=== PATIENT | female | born 1980 | race Caucasian/White ===

== ENCOUNTER 2023-04-17 09:19 | Emergency (ER) | payer OTHER, SELFPAY ==
[2023-04-17 09:22] VITALS: BP 129/77; PULSE 89; RESP 18; TEMP 36.5; O2SAT 99; BMI 24.2
--- NOTE | 2023-04-17 09:34 | XR_ITS ---
The [address] [address] Patient Name: SALUD CAMARILLO MRN: [facility]:[id number] date: 1980 Sex: F Assigned Patient Location: ER Current Patient Location: ED.MAIN Accession/Order Number: [id number] Exam Date: 04/17/2023 09:55 Report Date: 04/17/2023 10:36 At the request of: SUSAN KERR Procedure: XR cervical spine 2-3V EXAM: XR cervical spine 2-3V HISTORY: neck pain COMPARISON: None. TECHNIQUE: Lateral, AP, open-mouth radiographs of the cervical spine FINDINGS: Straightening of the normal cervical lordosis. Disc height loss at C5-C6 and C6/C7 with associated osteophytes. Normal mineralization. No fracture identified. The prevertebral soft tissues are unremarkable. Tongue ring in place XR/XR cervical spine 2-3V IMPRESSION: Degenerative changes of the cervical spine at C5-C6 and C6/C7. Electronically authenticated by: RUTHIE BECKWITH Date: 04/17/2023 10:36
--- NOTE | 2023-04-17 09:35 | ED_ITS ---
HPI - Neck Pain/Injury General Chief Complaint: Neck Pain/Injury Stated Complaint: NECK PAIN Time Seen by Provider: 04/17/23 09:29 Source: patient Mode of arrival: walk-in Limitations: no limitations History of Present Illness HPI Narrative: Patient woke with pain in the left posterolateral neck about 5 days ago. No known injury. No fever, chills, cough URI, SOB or chest pain. No known injury. No fall, MVC or other reason for the pain. She took OTC NSAID around 4am. She has not discussed with her PCP or been seen at any other facilities for this. No UE or LE symptoms such as numbness, tingling or weakness. Related Data Previous Rx's Medication Instructions Recorded methocarbamol 750 mg tablet 750 mg PO Q6H PRN pain #30 tabs 04/17/23 nabumetone 750 mg tablet 750 mg PO BID PRN pain #20 tabs 04/17/23 Allergies Allergy/AdvReac Type Severity Reaction Status Date / Time No Known Drug Allergies Allergy Ver[facility]17[facility]23 09:22 [facility] Social History Smoking status: Current every day smoker Exam Narrative Exam Narrative: Nurses notes and vital signs reviewed and patient is not hypoxic. afebrile General: Well-appearing and in no apparent distress. Skin: Warm, dry, no pallor noted. She has two scabbed areas on the right parietal scalp - none on the left. No rash to the neck. Head: Normocephalic, atraumatic. Neck: Left posterolateral cervical soft tissue tenderness. Supple, no posterior midline or anterior tenderness. One prominent posterior lymph node is noted. Eye: Pupils are equal, round and EOMI. No scleral icterus. Cardiovascular: Regular Rate and Rhythm without murmur, gallop or rub. Respiratory: No accessory muscle use or respiratory distress. Lungs are clear to auscultation, no wheezing, rales or rhonchi Back: No midline thoracic or lumbar vertebral tenderness. Musculoskeletal: normal ROM Neurological: A&O x4. No cranial nerve dysfunction observed. No truncal ataxia. Moves all extremities. Sensation intact. Psychiatric: Cooperative and interactive. Normal mood and affect. Constitutional Vital Signs, click to edit/add: Last Vital Signs Temp 97.7 F 04/17/23 09:22 Pulse 89 04/17/23 09:22 Resp 18 04/17/23 09:22 BP 129/77 04/17/23 09:22 Pulse Ox 99 04/17/23 09:22 O2 Del Method Room Air 04/17/23 09:22 Course Vital Signs Vital signs: Vital Signs Temperature 97.7 F 04/17/23 09:22 Pulse Rate 89 04/17/23 09:22 Respiratory Rate 18 04/17/23 09:22 Blood Pressure 129/77 04/17/23 09:22 Pulse Oximetry 99 04/17/23 09:22 Oxygen Delivery Method Room Air 04/17/23 09:22 Temperature 97.7 F 04/17/23 09:22 Pulse Rate 89 04/17/23 09:22 Respiratory Rate 18 04/17/23 09:22 Blood Pressure 129/77 04/17/23 09:22 Pulse Oximetry 99 04/17/23 09:22 Oxygen Delivery Method Room Air 04/17/23 09:22 MDM - Neck Pain/Injury MDM Narrative Medical decision making narrative: XR cervical spine = no acute abnormality to account for the pain. Patient received IM Toradol and IM Solumedrol. On recheck at 1030am she said that the pain was decreased but still present. We discussed xray result, diagnosis, plan for treatment. She was discharged home with prescriptions for relafen and robaxin, given work excuse and instructed to see her PCP for follow up. Imaging Data xr neck: My impression: No fracture or subluxation Radiologist's impression: Patient Name: SALUD CAMARILLO MRN: [id number] date: 1980 Sex: F Assigned Patient Location: ER Current Patient Location: ED.MAIN Accession/Order Number: [id number] Exam Date: 04/17/2023 09:55 Report Date: 04/17/2023 10:36 At the request of: SUSAN KERR Procedure: XR cervical spine 2-3V EXAM: XR cervical spine 2-3V HISTORY: neck pain COMPARISON: None. TECHNIQUE: Lateral, AP, open-mouth radiographs of the cervical spine FINDINGS: Straightening of the normal cervical lordosis. Disc height loss at C5-C6 and C6/C7 with associated osteophytes. Normal mineralization. No fracture identified. The prevertebral soft tissues are unremarkable. Tongue ring in place IMPRESSION: Degenerative changes of the cervical spine at C5-C6 and C6/C7. Electronically authenticated by: RUTHIE BECKWITH Date: 04/17/2023 10:36 Discharge Plan Discharge Chief Complaint: Neck Pain/Injury Clinical Impression: Acute neck pain Patient Disposition: Home, Self-Care Time of Disposition Decision: 10:36 Prescriptions / Home Meds: New nabumetone 750 mg tablet 750 mg PO BID PRN (Reason: pain) Qty: 20 0RF methocarbamol 750 mg tablet 750 mg PO Q6H PRN (Reason: pain) Qty: 30 0RF Instructions: Acute Neck Pain (ED) Stand Alone Forms: Portal Instructions Referrals: Physician,Non-Staff, MD [Primary Care Provider] - 1 week
[2023-04-17] MEDS: METHYLPREDNISOLONE SOD SUCC PF 125 MG/2 ML VIAL IM (09:41)
[2023-04-17] MEDS: KETOROLAC TROMETHAMINE 60 MG/2 ML VIAL IM (09:41)
== END 2023-04-17 10:45 | disposition home or self-care (01) ==
PROVIDERS: Emergency Provider Emergency Medicine
DX: M54.2 Cervicalgia (principal); F17.210 Nicotine dependence, cigarettes, uncomplicated
CPT/HCPCS: 72040; 96372; 99284; J2930

== ENCOUNTER 2023-06-28 14:01 | Outpatient (OUT) | payer OTHER, SELFPAY ==
--- NOTE | 2023-06-28 14:05 | XR_ITS ---
[address] [address] Patient Name: SALUD CAMARILLO MRN: [id number] date: 1980 Sex: F Assigned Patient Location: [facility] Current Patient Location: [facility] Accession/Order Number: [id number] Exam Date: 06/28/2023 14:10 Report Date: 06/28/2023 15:35 At the request of: CRISTA MENDEZ Procedure: XR elbow RT min 3V PROCEDURE: XR elbow RT min 3V COMPARISON: None. HISTORY: right elbow injury, right elbow pain FINDINGS: BONES:No acute fracture or dislocation. Minimal degenerative changes SOFT TISSUES:Negative. No visible soft tissue swelling. EFFUSION:None visible. OTHER: Negative. XR/XR elbow RT min 3V IMPRESSION: No acute abnormality Electronically authenticated by: CARTER BERRY Date: 06/28/2023 15:35
--- OUTSIDE RECORDS SUMMARY | 2023-06-28 14:08 | XMS_ITS | CCD ---
Author Name Unknown Address [id number] [place] [address] Organization [facility] Care Team Providers Care Postal Service Window Clerk Name Role Phone KIEL BHATIA Unavailable Unavailable SANDRA FINCH Unavailable Unavailable MD Luanne Khan Attending Provider [facility] Franklin Kim Primary Care Provider Erin, Luanne Unavailable NETO DIAZ Consulting Unavailable FRANKLIN PAIZ Primary Care Unavailable SAMIR, DR ZAIRE Charles Admitting Unavailabl e SAMIR, DR ZAIRE Charles Attending Unavailabl e FRANKLIN PAIZ Primary Care Unavailable SAMIR, DR ZAIRE Charles Attending Unavailabl e SAMIR, DR ZAIRE Charles Consulting Unavailabl e SAMIR, DR ZAIRE Charles Admitting Unavailabl e AGUBOSIMNELI Consulting Unavailable DREA HOWELL Consulting Unavailable [facility] [place] ROCHA Attending Unavailable [facility] [place] [place] Primary Care Unavailable [facility] [place] ROCHA Admitting Unavailable TAMPA, DR CARTER Brock Consulting Unavailable REQUEST, NONE LISTED Primary Care Unavaila ble LUANNE KHAN Attending Unavailable OLEXA, LUANNE Admitting Unavailable OLEXA, LUANNE Consulting Unavailable REQUEST, NONE LISTED Primary Care Unavaila ble ERIN, LUANNE Admitting Unavailable ERIN, LUANNE Attending Unavailable REQUEST, NONE LISTED Primary Care Unavaila ble DREA, DR KIEL Barroso Admitting Unavailmary SHEPARD, DR KIEL Barroso Attending Unavailabl tre SHEPARD, DR KIEL Barroso Consulting Unavailmary PEREZ, DR BENNY Richards Consulting Unavailable ANA, DR BENNY Richards Admitting Unavailable REQUEST, NONE LISTED Primary Care Unavaila arlen PEREZ, DR BENNY Richards Attending Unavailable JD CARRILLO Consulting Unavailable SUE, DR LINDSAY Richards Consulting Unavailable REQUEST, NONE LISTED Primary Care Unavaila ble MILAN, ALANA D Admitting Unavailable ALANA YATES Attending Unavailable ADRIAN BOYCE Consulting Unavailable Loretta Pacheco Unavailable Segun Fraag Referring Unavailable Segun Fraga Attending Unavailable Segun Fraga Admitting Unavailable Allergies Allergy Classification Reported Allergen(s) Allergy Type Date of Onset Reaction(s) Facility (2 sources) Adhesive agent Drug allergy (disorder) [facility] Repository (2 sources) buPROPion Drug Allergy [facility] Repository (2 sources) Chlorhexidine Drug Allergy [facility] Repository (2 sources) Fluorouracil Drug Allergy [facility] Repository (1 source) Adhesive bandage; Translations: [Adhesive Bandage] Propensity to adverse reactions (disorder) [facility] Repository (1 source) Adhesive Tape; Translations: [Tape] Propensity to adverse reactions (disorder) [facility] Repository (1 source) buPROPion; Translations: [Wellbutrin] Drug Allergy [facility] Repository (1 source) Chlorhexidine; Translations: [chlorhexidine topical] Drug Allergy [facility] Repository (1 source) Codeine; Translations: [codeine] Drug Allergy [facility] Repository Medications Current Medications Medication Drug Class(es) Dates Sig (Normalized) Sig (Original) acetaminophen 325 mg / HYDROcodone bitartrate 5 mg oral tablet (1 source) Opioid Agonist Start: 10-02-2021 take 1 tablet by mouth every four hours as needed for pain HYDROcodone-Acet aminophen 5-325 MG 1 tablet as needed for pain Orally up to every 4 hrs for 5 days Sep, Active cephalexin 500 mg oral capsule (1 source) Cephalosporin Antibacterial Start: 10-02-2021 take 1 capsule by mouth every eight hours Cephalexin 500 MG 1 capsule Orally every 8 hrs for 2 days Sep, Active predniSONE 20 mg oral tablet (1 source) Start: 09-30-2022 take 1 tablet by mouth every twelve hours predniSONE 20 MG 1 tablet Orally bid for 5 day(s) Sep, Active traMADol hydrochloride 50 mg oral tablet (1 source) Opioid Agonist Start: 10-09-2021 take 1 tablet by mouth every four to six hours as needed for pain traMADol HCl 50 MG 1 tablet as needed Orally q 4-6 hours prn pain for 7 days October, Active Completed/Discontinued Medications Medication Drug Class(es) Dates Sig (Normalized) Sig (Original) Hyoscyamine (2 sources) Hyoscyamine Sulfate ER Not-Taking Ondansetron (2 sources) Serotonin-3 Receptor Antagonist Zofran Not-Taking triamcinolone acetonide 40 mg/ml injectable suspension (1 source) Corticosteroid Start: 09-30-2022 Kenalog-40 Sep, 40 mg Problems Active Problems Problem Classification Problem Date Documented Da te Episodic/Chronic Abdominal pain (11 sources) Abdominal pain; Translations: [Unspecified abdominal pain] Onset: 06-09-2021 Episodic Allergic reactions (1 source) Unspecified contact dermatitis, unspecified cause Episodic Fracture of upper limb (5 sources) Other fracture of shaft of right ulna, subsequent encounter for closed fracture with routine healing; Translations: [Unspecified fracture of shaft of right ulna, initial encounter for closed fracture] Onset: 11-11-2021 Resolved: 11-11-2021 Episodic Gastritis and duodenitis (1 source) Unspecified chronic gastritis without bleeding; Translations: [UNS CHRONIC GASTRITIS W/O BLEEDING] Onset: 10-10-2021 Chronic Gastrointestinal hemorrhage (1 source) Melena; Translations: [MELENA] Onset: 10-10-2021 Episodic Other screening for suspected conditions (not mental disorders or infectious disease) (3 sources) Imaging of abdomen abnormal; Translations: [Abnormal findings on diagnostic imaging of other abdominal regions, including retroperitoneum] Episodic Pancreatic disorders (not diabetes) (3 sources) Pancreatitis; Translations: [Acute pancreatitis without necrosis or infection, unspecified] Episodic Substance-related disorders (1 source) Nicotine dependence, cigarettes, uncomplicated; Translations: [NICOTINE DEPEND CIGARETTES UNCOMP] Onset: 10-10-2021 Chronic Unclassified (4 sources) CONTACT W/AND (SUSP) EXPOS COVID-19; Translations: [CONTACT W/AND (SUSP) EXPOS COVID-19] Onset: 05-12-2021 Past or Other Problems Problem Classification Problem Date Documented Date Episodic/Chronic E Codes: Fall (1 source) Fall on same level from slipping, tripping and stumbling without subsequent striking against object, initial encounter; Translations: [FALL SAME LVL SLIP NO STRK OBJ INIT] Onset: 10-01-2021 Episodic Other injuries and conditions due to external causes (3 sources) Unspecified injury of right forearm, initial encounter; Translations: [UNS INJURY RT FOREARM INITIAL] Onset: 09-30-2021 Episodic Residual codes; unclassified (2 sources) Other specified postprocedural states Onset: 10-02-2021 Resolved: 11-11-2021 Episodic Unclassified (1 source) CONTACT W/AND (SUSP) EXPOS COVID-19; Translations: [CONTACT W/AND (SUSP) EXPOS COVID-19] Onset: 05-09-2021 Results Test Name Value Interpretation Reference Range Facility CBC w/Indiceson 11-16-2022 Erythrocyte distribution width (RBC) [Ratio] 13.8 % Normal 10.9-14.2 [facility] Comment on above: Performed By: #### 2 117930, 65518408, 443470126, 9826961, 4142685, 4791913, 6727760 #### [facility] [address] [place] [address] Hematocrit (Bld) [Volume fraction] 43.4 % Normal 34.0-46.0 [facility] Comment on above: Performed By: #### 2 221872, 06311231, 848453138, 2235631, 0285744, 6750897, 1849018 #### [facility] [address] [place] [address] Hemoglobin (Bld) [Mass/Vol] 14.6 g/dL Normal 12.0-16.0 [facility] Comment on above: Performed By: #### 2 016106, 15304053, 037337630, 3779519, 3890878, 2036209, 6987965 #### [facility] [address] [place] [address] MCH (RBC) [Entitic mass] 31.2 pg Normal 27.0-34.0 [facility] Comment on above: Performed By: #### 2 053967, 08033471, 985863445, 3007689, 7608064, 2214568, 9116576 #### [facility] [address] [place] [address] MCHC (RBC) [Mass/Vol] 33.7 g/dL Normal 31.4-36.0 [facility] Comment on above: Performed By: #### 2 939250, 33437847, 411503429, 0531435, 8028808, 2392099, 4865888 #### [facility] [address] [place] [address] MCV (RBC) [Entitic vol] 92.6 fL Normal 80.0-100.0 [facility] Comment on above: Performed By: #### 2 517072, 26626531, 669342037, 8441045, 5335201, 4670018, 7211440 #### [facility] [address] [place] [id number] Platelet mean volume (Bld) [Entitic vol] 9.0 fL Normal 6.4-10.8 [facility] Comment on above: Performed By: #### 2 126724, 84105632, 385531955, 8878092, 6784201, 7274843, 3207076 #### [facility] [address] [place] [address] Platelets (Bld) [#/Vol] 261.0 E9/L Normal 150.0-500.0 [facility] Comment on above: Performed By: #### 2 998105, 94137194, 554316665, 5003614, 9450293, 7428019, 9726706 #### [facility] [address] [place] [address] RBC (Bld) [#/Vol] 4.7 E12/L Normal 4.3-5.9 [facility] Comment on above: Performed By: #### 2 022687, 39846351, 925448663, 1743761, 2281222, 8241439, 6875845 #### [facility] [address] [place] [address] WBC corrected for nucl RBC Auto (Bld) [#/Vol] 11.4 E9/L High 4.0-11.0 [facility] Comment on above: Performed By: #### 2 803421, 39733273, 069917452, 7292420, 3069664, 3617111, 3321448 #### [facility] [address] [place] [address] CMPon 11-16-2022 Albumin [Mass/Vol] 4.2 g/dL Normal 3.3-5.0 [facility] Comment on above: Performed By: #### 2 789634, 87851797, 656897564, 2387352, 5351683, 9215254, 3130546 #### [facility] [address] [place] [address] Albumin/Globulin (S) [Mass conc ratio] 1.4 Normal 1.1-2.2 [facility] Comment on above: Performed By: #### 2 839570, 10739771, 724624295, 0840141, 3430461, 1555575, 7386463 #### [facility] [address] [place] [address] ALP [Catalytic activity/Vol] 38 Int._Unit/L Normal 21-98 [facility] Comment on above: Performed By: #### 2 433055, 47997844, 032070993, 7647105, 5794539, 2872941, 5788619 #### [facility] [address] [place] [address] ALT No additional P-5'-P [Catalytic activity/Vol] 11 Int._Unit/L Normal 6-46 [facility] Comment on above: Performed By: #### 2 928835, 49424132, 189455663, 2980946, 5907276, 8874454, 8627982 #### [facility] [address] [place] [address] Anion gap [Moles/Vol] 10 mmol/L Normal 6-16 [facility] Comment on above: Performed By: #### 2 053452, 07439937, 722241533, 3690605, 0314898, 0250317, 8574780 #### [facility] [address] [place] [address] AST [Catalytic activity/Vol] 12 Int._Unit/L Normal 5-43 [facility] Comment on above: Performed By: #### 2 120444, 45737631, 637049053, 2766895, 7523257, 3759950, 6945787 #### [facility] [address] [place] [address] Bilirubin [Mass/Vol] 0.5 mg/dL Normal 0.0-1.1 [facility] Comment on above: Performed By: #### 2 068338, 29332552, 864277102, 1409886, 5986509, 9277637, 2868265 #### [facility] [address] [place] [address] Calcium [Mass/Vol] 9.4 mg/dL Normal 8.9-11.1 [facility] Comment on above: Performed By: #### 2 121074, 61532545, 184648824, 0435575, 6821020, 5767403, 1011609 #### [facility] [address] [place] [address] Chloride [Moles/Vol] 106 mmol/L Normal 101-111 [facility] Comment on above: Performed By: #### 2 155483, 25639994, 901113794, 0650036, 8852842, 0018477, 4180318 #### [facility] [address] [place] [address] CO2 [Moles/Vol] 28 mmol/L Normal 21-31 [facility] Comment on above: Performed By: #### 2 855152, 92261336, 518875339, 8357314, 4936204, 7878959, 8222361 #### [facility] [address] [place] [address] Creatinine [Mass/Vol] 0.8 mg/dL Normal 0.5-1.3 [facility] Comment on above: Performed By: #### 2 117196, 69159219, 356230205, 7027896, 5636449, 2247022, 8441303 #### [facility] [address] [place] [address] Globulin (S) [Mass/Vol] 2.9 g/dL Normal 1.4-4.0 [facility] Comment on above: Performed By: #### 2 092997, 38579308, 269347464, 2581122, 5643360, 3869595, 2639692 #### [facility] [address] [place] [address] Glucose [Mass/Vol] 90 mg/dL Normal 55-199 [facility] Comment on above: Result Comment: If t his glucose result represents a fasting glucose, interpretation should refer to the following reference range: 55-99 mg/dL Performed By: #### 2 784891, 89254057, 555090364, 7889738, 4715515, 2535023, 0602104 #### [facility] [address] [place] [address] Potassium [Moles/Vol] 4.0 mmol/L Normal 3.5-5.3 [facility] Comment on above: Performed By: #### 2 717807, 18618354, 447575268, 7586815, 5008315, 6728320, 3080505 #### [facility] [address] [place] [address] Protein [Mass/Vol] 7.1 g/dL Normal 6.0-7.8 [facility] Comment on above: Performed By: #### 2 290895, 32221624, 439716349, 2915853, 1877129, 0087803, 5099007 #### [facility] [address] [place] [address] Sodium [Moles/Vol] 140 mmol/L Normal 135-145 [facility] Comment on above: Performed By: #### 2 679146, 22065938, 066126936, 7476200, 6375681, 6137960, 6871469 #### [facility] [address] [place] [address] Urea nitrogen [Mass/Vol] 10 mg/dL Normal 5-21 [facility] Comment on above: Performed By: #### 2 550527, 91657642, 081908356, 1738464, 5312168, 5784084, 4758684 #### [facility] [address] [place] [address] Urea nitrogen/Creatinin e [Mass ratio] 12 No Units Normal 10-20 [facility] Comment on above: Performed By: #### 2 747199, 76456047, 124269307, 7662907, 9962487, 1750302, 9688131 #### [facility] [address] [place] [address] Consent for Treatmenton 11-05 Consent for Treatment [id number] #1.00CD:127 Normal [facility] Lipid Panelon 11-16-2022 Cholesterol [Mass/Vol] 154 mg/dL Normal 120-200 [facility] Comment on above: Performed By: #### 2 715707, 84387132, 466541283, 2647454, 0693588, 0063050, 5779601 #### [facility] [address] [place] [address] Cholesterol in HDL [Mass/Vol] 40 mg/dL Invalid Interpretation Code [facility] Comment on above: Result Comment: HDL > or equal to 60 mg/dL: Low cardiovascular risk HDL < 40 mg/dL : High cardiovascular risk Performed By: #### 2 077441, 92406265, 897155526, 7539983, 3215988, 7817327, 6516917 #### [facility] [address] [place] [address] Cholesterol in LDL [Mass/Vol] 94 mg/dL Normal <=129 [facility] Comment on above: Performed By: #### 2 886458, 14392606, 026671427, 4946235, 2794212, 7426216, 1890168 #### [facility] [address] [place] [address] Cholesterol in VLDL [Mass/Vol] 11 mg/dL Normal 7-40 [facility] Comment on above: Performed By: #### 2 381967, 06326705, 983707246, 9809480, 9788529, 9347150, 6676331 #### [facility] [address] [place] [address] Triglyceride [Mass/Vol] 57 mg/dL Normal <=149 [facility] Comment on above: Performed By: #### 2 233407, 50869475, 832719930, 9592899, 5918900, 8451227, 0818792 #### [facility] [address] [place] [address] MA Mamm Diag w/CAD if perf a nd 3D Bilon 11-16-2022 MA Mamm Diag w/CAD if perf and 3D Mauricio Exam Date/Time: 11/16/2022 10:33 EDT Reason for Exam: GALACTORRHEA Report IMPRESSION: BIRADS 2 BENIGN FINDINGS, NORMAL INTERVAL FOLLOW-UP.12 MONTH RECALL. WITH THE HISTORY OF GALACTORRHEA, CLINICAL MANAGEMENT IS SUGGESTED. CLINICAL HISTORY: GALACTORRHEA. COMPARISON: 12/06/2020. COMMENT: Routine views and tomosynthesis views of both breasts were obtained. The breasts are heterogeneously dense, which may obscure small masses. No dominant breast mass nor neoplastic calcifications are noted. There has been no significant change when compared to the prior exam. The examination was reviewed with Computer Aided Detection. An ultrasound was obtained at all clock face positions and in the central/ retroareolar region of the right breast. No breast mass nor cyst nor suspicious lesion is noted in the right breast. There are small diameter retroareolar ducts, without evidence of internal debris or nodularity. An ultrasound was obtained at all clock face positions and in the central/ retroareolar region of the left breast. At 4:00, there is a cyst, with greatest diameter of 6 mm. No solid breast mass nor suspicious lesion is noted. There are small diameter retroareolar ducts, without evidence of internal debris or nodularity. Breast Density: Yes Mammography is very important to your health. The current [place] [employer] and National Comprehensive Cancer Network guidelines recommends annual mammography beginning at age 40. This facility utilizes a reminder system to ensure all patients receive reminder notifications at the appropriate time based on the recommendations of this exam. Board Certified Radiologists. Accredited by the ACR and FDA. Ordering Provider: Segun Fraga FINAL REPORT Dictated: 11/16/2022 2:53 pm Jd Vasquez M.D. Signed (Electronic Signature): 11/16/2022 2:53 pm Signed by: Jd Vasquez M.D. Transcribed by: LENNOX Technologist: [facility] Assessment: BI-RADS Category 2-Benign finding Recommendation: Normal interval follow-up Normal [facility] Physician Orderon 11-16-2022 Physician Order [id number] #1.00CD:127 Normal [facility] Prolactinon 11-16-2022 Prolactin [Mass/Vol] 15.10 ng/mL Normal 3.34-26.72 [facility] Comment on above: Performed By: #### 2 260746, 16746762, 384433882, 8391238, 7688581, 3991600, 7505886 #### [facility] [address] [place] [address] TSHon 11-16-2022 TSH Qn 1.73 m[IU]/L Normal 0.34-5.60 [facility] Comment on above: Performed By: #### 2 681173, 09076101, 399549368, 7752356, 0847182, 1241438, 2164769 #### [facility] [address] [place] [address] US Breast Unilateral Lt Comp leteon 11-16-2022 US Breast Unilateral Lt Complete Exam Date/Time: 11/16/2022 11:04 EDT Reason for Exam: Nipple discharge Report PLEASE REFER TO THE MAMMOGRAM REPORT. Ordering Provider: Segun Fraga FINAL REPORT Dictated: 11/16/2022 3:22 pm Jd Vasquez M.D. Signed (Electronic Signature): 11/16/2022 3:22 pm Signed by: Jd Vasquez M.D. Transcribed by: LENNOX Technologist: JAYRO Fischer [facility] US Breast Unilateral Rt Comp leteon 11-16-2022 US Breast Unilateral Rt Complete Exam Date/Time: 11/16/2022 11:03 EDT Reason for Exam: Nipple discharge Report PLEASE REFER TO THE MAMMOGRAM REPORT. Ordering Provider: Segun Fraga FINAL REPORT Dictated: 11/16/2022 3:23 pm Jd Vasquez M.D. Signed (Electronic Signature): 11/16/2022 3:23 pm Signed by: Jd Vasquez M.D. Transcribed by: LENNOX Technologist: JAYRO Fischer [facility] Vitamin D 25 Hydroxyon 11-16 25-hydroxyvitamin D3 [Mass/Vol] 27.5 ng/mL Low 30.0-100.0 [facility] Comment on above: Result Comment: Vit thurston D deficiency has been defined as a level of serum 25-OH vitamin D less than 20 ng/mL (1,2) by the [place] of Medicine and an Endocrine Society practice guideline. The Endocrine Society further defined vitamin D insufficiency as a level between 21 and 29 ng/mL (2). 1. IOM ([place] of Medicine). 2010. Dietary reference intakes for calcium and D. [place]: The National Academies Press. 2. Vero MF, Kiersten NC, Jade RUIZ, et al. Evaluation, treatment, and prevention of vitamin D deficiency: an Endocrine Society clinical practice guideline. JCEM. 2010; 96 (7):1911-30. Performed By: #### 2 613419, 43467118, 925697608, 9005906, 0930347, 1682606, 2479780 #### [facility] [address] [place] [address] eGFRon 11-16-2022 GFR/1.73 sq M.predicted among non-blacks MDRD (S/P/Bld) [Vol rate/Area] 95 mL/min/1.73 m2 Normal >=59 [facility] Comment on above: Order Comment: Order added by Discern Expert. Result Comment: Photo Checker And Assembler pascual kidney disease could be indicated at eGFR's of less than 60 mL/min/1.73m2. Kidney failure is indicated at less than 15 mL/min/1.73m2. Performed By: #### 2 265994, 18127069, 864293213, 0051939, 7730599, 8986645, 3508787 #### [facility] [address] [place] [id number] Physician Orderon 11-12-2022 Physician Order [id number] #1.00CD:127 Normal [facility] XR forearm RT 2V*on 10-10-19 XR forearm RT 2V* [facility] Main [place] [address] [place] [address] XRay Report Signed Patient: Vianney Camarillo MR#: [id number] 20 : 1980 Acct:[id number] Age/Sex: 41 / F ADM Date: 10/09/21 Loc: [facility] Room: Type: [facility] Attending Dr: Luanne Khan MD Ordering Provider: Luanne Khan MD Date of Service: 10/09/21 XR/XR forearm RT 2V*: Other specified postprocedural states Copies to: Luanne Khan MD RIGHT FOREARM - 2 views CLINICAL HISTORY: Follow-up right ulnar shaft fracture COMPARISON: 10/02/2021 (intraoperative) AP and lateral views of the right forearm were obtained. There is a volar plate along the mid to distal shaft of the ulna. A nondisplaced fracture is seen in the area in satisfactory alignment. There is no new fracture or dislocation. There is mild soft tissue swelling. XR/XR forearm RT 2V* IMPRESSION: STABLE ULNAR SHAFT FRACTURE. Impression dictated by: Krystal Rubalcava M.D.10/09/2021 3:57 PM Dictation Location: [place] [address] Transcribed By: [facility] 10/09/21 1709 Dictated By: Krystal Rubalcava MD 10/09/21 1135 Signed By: 10/09/21 1556 [facility] Covid-19 PCR (CVDTBH)on SARS-CoV-2 (COVID-19) RNA RAQUEL+probe Ql (Unsp spec) Not detected Normal NOT DETECTED [facility] Comment on above: Result Comment: When diagnostic testing is negative, the possibility of a false negative should be considered in the context of a patient's recent exposures and the presence of clinical signs and symptoms consistent with SARS-CoV-2. This test is not yet approved or cleared by the [place] FDA. When there are no FDA-approved or cleared tests available, and other criteria are met, FDA can make tests available under an emergency access mechanism called an Emergency Use Authorization (EUA). The EUA for this test is supported by the Information Systems Administrator of Health and Human Service's declaration that circumstances exist to justify the emergency use of in vitro diagnostics for the detection and/or diagnosis of the virus that causes COVID-19. This EUA will remain in effect for the duration of the COVID-19 declaration justifying emergency of IVDs, unless it is terminated or revoked by the FDA (after which the test may no longer be used). Performed By: #### C VDTBH #### [facility] [address] [place] [address] [address] Cande Leach H PYLORI TISSUEon 10-08-2021 H PYL TISSUE, UREASE Negative Normal NEGATIVE [facility] Comment on above: Performed By: #### H PYLT #### [facility] [address] [address] [address] Cande Leach PREG HCG QUALon 10-08-2021 , QUAL Negative Normal NEGATIVE [facility] Comment on above: Performed By: #### C MP, BRUNO, LIPA #### [facility] [address] [place], [place] [address] Dr. Cande Leach HCG,Urineon 10-02-2021 Beta HCG ( test) Ql (U) Negative Normal [facility] Comment on above: Result Comment: PERF ORMED BY: [place] [id number] PATHOLOGIST MARKETING SYSTEMS ANALYST CHARLES STEINER M.D. Performed By: #### U HCG #### [place] [address] [place] XR forearm RT 2V*on 10-03-19 XR forearm RT 2V* [facility] Main [place] [address] [place] [address] XRay Report Signed Patient: Vianney Camarillo MR#: [id number] [birth year] : 1980 Acct:[id number] Age/Sex: 41 / F ADM Date: 10/02/21 Loc: MD Room: Type: [facility] Attending Dr: Luanne Khan MD Ordering Provider: Luanne Khan MD Date of Service: 10/02/21 XR/XR forearm RT 2V*: . Copies to: Luanne Khan MD XR forearm RT 2V* 10/02/2021 3:18 PM SIGNS AND SYMPTOMS: Plate and screw fixation of a fracture of the right ulna PROTOCOL: Intraoperative views of the right forearm COMPARISON: None FINDINGS: Intraoperative views of the right forearm demonstrate plate and screw fixation of a previous ulnar fracture. Number of images: 4 Fluoroscopic time: 1 minute 10 seconds XR/XR forearm RT 2V* IMPRESSION: Intraoperative views of the right forearm demonstrate plate and screw fixation of a previous ulnar fracture. Impression dictated by: Benny Parks M.D.10/02/2021 4:38 PM Dictation Location: [place] [address] Transcribed By: [facility] 10/02/21 1638 Dictated By: Benny Parks II, MD 10/02/21 1637 Signed By: 10/02/21 1638 Normal [facility] SARS-CoV-2 (COVID-19) RNA RAQUEL+probe Ql (Unsp spec) Negative Normal Negative [facility] Comment on above: Order Comment: Healt hcare Worker?: N Result Comment: Testing for SARS-CoV-2 by RT-PCR This test was developed and its performance characteristics determined by [employer] ([employer]) and validated at the [facility]. This test has not been FDA cleared or approved. This test has been authorized by FDA under an Emergency Use Authorization (EUA). This test has been validated in accordance with the FDA's Guidance Document (Policy for Diagnostics Testing in Laboratories Certified to Perform High Complexity Testing under CLIA prior to Emergency Use Authorization for Coronavirus Disease-2019 during the Public Health Emergency) issued on September 07, 2019. This test is only authorized for the duration of time the declaration that circumstances exist justifying the authorization of the emergency use of in vitro diagnostic tests for detection of SARS-CoV-2 virus and/or diagnosis of COVID-19 infection under section 564(b)(1) of the Act, 21 U.S.C. 360bbb-3(b)(1), unless the authorization is terminated or revoked sooner. PERFORMED BY: [place] [id number] PATHOLOGIST MARKETING SYSTEMS ANALYST CHARLES STEINER M.D. Performed By: #### C OVID 19 [facility] #### [address] COVID-19 Positive/NegativeOr dered By: Luanne Khan on 10-01-2021 SARS-CoV-2 (COVID-19) N gene RAQUEL+probe Ql (Resp) Negative Negative [facility] Comment on above: Testing for SARS-CoV -2 by RT-PCRThis test was developed and its performance characteristics determined by [employer] ([employer]) and validated at the [facility]. This test has not been FDA cleared or approved. This test has been authorized by FDA under an Emergency Use Authorization (EUA). This test has been validated in accordance with the FDA's Guidance Document (Policy for Diagnostics Testing in Laboratories Certified to Perform High Complexity Testing under CLIA prior to Emergency Use Authorization for Coronavirus Disease-2019 during the Public Health Emergency) issued on September 07, 2019. This test is only authorized for the duration of time the declaration that circumstances exist justifying the authorization of the emergency use of in vitro diagnostic tests for detection of SARS-CoV-2 virus and/or diagnosis of COVID-19 infection under section 564(b)(1) of the Act, 21 U.S.C. 360bbb-3(b)(1), unless the authorization is terminated or revoked sooner. XR FOREARM RT 2Von 2 XR FOREARM RT 2V EXAM: XR FOREARM RT 2V HISTORY: Acute right arm pain following fall. COMPARISON: Right elbow, 09/13/2019. TECHNIQUE: AP and crosstable lateral views of the right forearm. FINDINGS: There is an acute oblique fracture of the ulnar shaft near the junction of the middle and distal thirds, with 3 mm of dorsal displacement of distal fragment on the lateral view. No additional acute osseous injury is seen. Alignment of the elbow wrist appears anatomic. An old healed fifth metacarpal fracture is noted with mild developmental shortening of the fourth and fifth metacarpals. IMPRESSION: 1. Acute mildly displaced ulnar shaft fracture as above. Electronically authenticated by: JD CARRILLO Date: 2021-09-29 23:57 Normal [facility] AMYLASEon 06-09-2021 Amylase [Catalytic activity/Vol] 47 U/L Normal 31-110 [facility] Comment on above: Performed By: #### C SANDRA BRUNO LIPA #### [facility] [address] [place] [address] Dr. Cande Leach CBC AUTO DIFFon 06-09-2021 BASO # 0.1 103/ul Normal 0.0-0.1 [facility] Comment on above: Performed By: #### C MP BRUNO, LIPA #### [facility] [address] [place] [address] [address] Cande Leach Basophils/100 WBC (Bld) 0.6 % Normal 0.2-2.0 [facility] Comment on above: Performed By: #### C SANDAR BRUNO, LIPA #### [facility] [address] [place] [address] [address] Cande Leach EO # 0.2 103/ul Normal 0.0-0.7 [facility] Comment on above: Performed By: #### C MP BRUNO, LIPA #### [facility] [address] [place] [address] [address] Cande Leach Eosinophils/100 WBC (Bld) 1.9 % Normal 0.9-7.0 [facility] Comment on above: Performed By: #### C MP BRUNO, LIPA #### [facility] [address] [place] [address] Dr. Cande Leach Erythrocyte distribution width (RBC) [Ratio] 13.7 % Normal 11.0-15.0 [facility] Comment on above: Performed By: #### C BRUNO FLORES, LIPA #### [facility] [address] [place] [address] Dr. Cande Leach Hematocrit (Bld) [Volume fraction] 43.1 % Normal 36.0-48.0 [facility] Comment on above: Performed By: #### C MP BRUNO, LIPA #### [facility] [address] [place] [address] Dr. Cande Leach Hemoglobin (Bld) [Mass/Vol] 14.3 g/dL Normal 12.0-16.0 [facility] Comment on above: Performed By: #### C BRUNO FLORES, LIPA #### [facility] [address] [place] [address] Dr. Cande Leach IG # 0.02 10e3/ul Normal 0.00-0.03 [facility] Comment on above: Performed By: #### C BRUNO FLORES, LIPA #### [facility] [address] [place] [address] Dr. Cande Leach IG % 0.3 % Normal 0.0-0.5 [facility] Comment on above: Performed By: #### C BRUNO FLORES, LIPA #### [facility] [address] [place] [address] Dr. Cande Leach LYMPH # 2.1 103/ul Normal 1.2-3.8 [facility] Comment on above: Performed By: #### C BRUNO FLORES, LIPA #### [facility] [address] [place] [address] Dr. Cande Leach Lymphocytes/100 WBC (Bld) 26.6 % Normal 20.5-60.0 [facility] Comment on above: Performed By: #### C BRUNO FLORES, LIPA #### [facility] [address] [place] [address] Dr. Cande Leach MANUAL DIFF REQ NO Normal [facility] Comment on above: Performed By: #### C SANDRA BRUNO, LIPA #### [facility] [address] [place] [address] Dr. Cande Leach MCH (RBC) [Entitic mass] 30.6 pg Normal 26.7-34.0 [facility] Comment on above: Performed By: #### C BRUNO FLORES, LIPA #### [facility] [address] [place] [address] Dr. Cande Leach MCHC (RBC) [Mass/Vol] 33.2 g/dL Normal 29.9-35.2 [facility] Comment on above: Performed By: #### C SANDRA BRUNO, LIPA #### [facility] [address] [place] [address] Dr. Cande Leach MCV (RBC) [Entitic vol] 92.3 fL Normal 81.0-99.0 [facility] Comment on above: Performed By: #### C SANDRA BRUNO, LIPA #### [facility] [address] [place] [address] Dr. Cande Leach MONO # 0.5 103/ul Normal 0.3-0.8 [facility] Comment on above: Performed By: #### C SANDRA BRUNO, LIPA #### [facility] [address] [place] [address] Dr. Cande Leach Monocytes/100 WBC (Bld) 6.6 % Normal 1.7-12.0 [facility] Comment on above: Performed By: #### C SANDRA BRUNO, LIPA #### [facility] [address] [place] [address] Dr. Cande Leach NEUT # 5.1 103/ul Normal 1.4-6.5 [facility] Comment on above: Performed By: #### C MP BRUNO, LIPA #### [facility] [address] [place] [address] Dr. Cande Leach Neutrophils/100 WBC (Bld) 64.0 % Normal 43.0-75.0 [facility] Comment on above: Performed By: #### C MP BRUNO, LIPA #### [facility] [address] [place] [address] Dr. Cande Leach Platelet mean volume (Bld) [Entitic vol] 9.6 fL Normal 9.5-13.5 [facility] Comment on above: Performed By: #### C MP, BRUNO, LIPA #### [facility] [address] [place] [address] Dr. Cande Leach PLT 273 103/ul Normal 150-450 [facility] Comment on above: Performed By: #### C MP, BRUNO, LIPA #### [facility] [address] [place] [address] Dr. Cande Leach RBC 4.67 106/ul Normal 4.20-5.40 [facility] Comment on above: Performed By: #### C MP, BRUNO, LIPA #### [facility] [address] [place] [address] Dr. Cande Leach WBC 7.9 103/ul Normal 4.0-11.0 [facility] Comment on above: Performed By: #### C MP, BRUNO, LIPA #### [facility] [address] [place] [address] Dr. Cande Leach LACTATE/LACTIC ACIDon 2021 Lactate [Moles/Vol] 1.2 mmol/L Normal 0.7-2.0 [facility] Comment on above: Performed By: #### L ACT #### [facility] [address] [place] [address] Dr. Cande Leach LIPASEon 06-09-2021 Lipase [Catalytic activity/Vol] 65.0 U/L Normal 23.0-300.0 [facility] Comment on above: Performed By: #### C MP, BRUNO, LIPA #### [facility] [address] [place] [address] Dr. Cande Leach PREG HCG QUALon 06-09-2021 , QUAL Negative Normal NEGATIVE [facility] Comment on above: Performed By: #### P REG #### [facility] [address] [place] [address] Dr. Cande Leach PROF 14(COMP METB)on 022 Albumin [Mass/Vol] 3.4 g/dL Critically low 3.5-5.0 [facility] Comment on above: Performed By: #### C MP, BRUNO, LIPA #### [facility] [address] [place] [address] [address] Cande Leach Albumin/Globulin [Mass ratio] 1.0 {ratio} Normal [facility] Comment on above: Performed By: #### C MP, BRUNO, LIPA #### [facility] [address] [place] [address] [address] Cande Leach ALP [Catalytic activity/Vol] 50 U/L Normal 38-126 [facility] Comment on above: Performed By: #### C MP, BRUNO, LIPA #### [facility] [address] [place] [address] [address] Cande Leach ALT [Catalytic activity/Vol] 13 U/L Normal 9-52 [facility] Comment on above: Performed By: #### C MP, BRUNO, LIPA #### [facility] [address] [place] [address] Dr. Cande Leach Anion gap [Moles/Vol] 12.0 mmol/L Normal [facility] Comment on above: Performed By: #### C MP, BRUNO, LIPA #### [facility] [address] [place] [address] [address] Cande Leach AST [Catalytic activity/Vol] 11 U/L Critically low 14-36 [facility] Comment on above: Performed By: #### C MP, BRUNO, LIPA #### [facility] [address] [place] [address] Dr. Cande Leach Bilirubin [Mass/Vol] 0.4 mg/dL Normal 0.2-1.3 [facility] Comment on above: Performed By: #### C MP, BRUNO, LIPA #### [facility] [address] [place] [address] Dr. Cande Leach Calcium [Mass/Vol] 8.7 mg/dL Normal 8.4-10.2 [facility] Comment on above: Performed By: #### C MP, BRUNO, LIPA #### [facility] [address] [place] [address] [address] Cande Leach Chloride [Moles/Vol] 108 mmol/L Critically high 98-107 [facility] Comment on above: Performed By: #### C MP, BRUNO, LIPA #### [facility] [address] [place] [address] [address] Cande Leach CO2 [Moles/Vol] 25.7 mmol/L Normal 22.0-30.0 [facility] Comment on above: Performed By: #### C MP, BRUNO, LIPA #### [facility] [address] [place] [address] [address] Cande Leach Creatinine [Mass/Vol] 0.85 mg/dL Normal 0.52-1.04 [facility] Comment on above: Performed By: #### C MP, BRUNO, LIPA #### [facility] [address] [place] [address] Dr. Cande Leach EGFR-AF ZAMBIAN >60 Normal >=60 [facility] Comment on above: Performed By: #### C MP, BRUNO, LIPA #### [facility] [address] [place] [address] Dr. Cande Leach EGFR-NON AF ZAMBIAN >60 Normal >=60 [facility] Comment on above: Performed By: #### C MP, BRUNO, LIPA #### [facility] [address] [place] [address] Dr. Cande Leach Globulin (S) [Mass/Vol] 3.3 g/dL Normal [facility] Comment on above: Performed By: #### C MP, BRUNO, LIPA #### [facility] [address] [place] [address] Dr. Cande Leach Glucose [Mass/Vol] 92 mg/dL Normal 74-106 [facility] Comment on above: Performed By: #### C MP, BRUNO, LIPA #### [facility] [address] [place] [address] [address] Cande Leach Potassium [Moles/Vol] 3.7 mmol/L Normal 3.4-5.0 [facility] Comment on above: Performed By: #### C MP, BRUNO, LIPA #### [facility] [address] [place] [address] Dr. Cande Leach Protein [Mass/Vol] 6.7 g/dL Normal 6.1-8.2 [facility] Comment on above: Performed By: #### C BRUNO FLORES LIPA #### [facility] [address] [place] [address] [address] Cande Leach Sodium [Moles/Vol] 142 mmol/L Normal 137-145 [facility] Comment on above: Performed By: #### C BRUNO FLORES LIPJudy #### [facility] [address] [place] [address] [address] Cande Leach Urea nitrogen [Mass/Vol] 7.0 mg/dL Normal 7.0-17.0 [facility] Comment on above: Performed By: #### C BRUNO FLORES LIPA #### [facility] [address] [place] [address] Dr. Cande Leach Urea nitrogen/Creatinin e [Mass ratio] 8.2 mg/mg Normal [facility] Comment on above: Performed By: #### C BRUNO FLORES LIPA #### [facility] [address] [place] [address] Dr. Cande Leach XR ABD FLAT UP_PA Geetha 06-09 XR ABD FLAT UP_PA CH EXAMINATION: XR ABD FLAT UP_PA CH HISTORY: UNSPECIFIED ABDOMINAL PAIN ; mid abdominal pain, diarrhea COMPARISON: XR chest 01/04/2021 FINDINGS: LUNGS: No infiltrate, pneumothorax, or pleural effusion. MEDIASTINUM: No abnormal widening. BOWEL GAS PATTERN: Non-obstructed. FREE AIR: None. CALCIFICATIONS: None significant. BONES: No fracture or visible bone lesion. OTHER: Bilateral fallopian tube clips. IMPRESSION: 1. No acute cardiopulmonary process or suspicious findings. 2. Normal bowel gas pattern. No suspicious abdominal findings. Electronically authenticated by: LINDSAY ROGERS Date: 2021-06-09 15:08 Normal [facility]on SARS-CoV-2 (COVID-19) RNA RAQUEL+probe Ql (Unsp spec) Not detected Normal NOT DETECTED [facility] Comment on above: Result Comment: This test is not yet approved or cleared by the [place] FDA. When there are no FDA-approved or cleared tests available, and other criteria are met, FDA can make tests available under an emergency access mechanism called an Emergency Use Authorization (EUA). The EUA for this test is supported by the Information Systems Administrator of Health and Human Service's (HHS's) declaration that circumstances exist to justify the emergency use of in vitro diagnostics for the detection and/or diagnosis of the virus that causes COVID-19. This EUA will remain in effect (meaning this test can be used) for the duration of the COVID-19 declaration justifying emergency of IVDs, unless it is terminated or revoked by FDA (after which the test may no longer be used). When diagnostic testing is negative, the possibility of a false negative should be considered in the context of a patient's recent exposures and the presence of clinical signs and symptoms consistent with SARS-CoV-2. Performed By: #### C BRUNO FLORES LIPA #### [facility] [address] [place] [address] Dr. Cande Leach Vital Signs Date Time Vital Sign Value Performing Clinician Facility 09-30-2022 18:50-0400 Body height 167.64 cm Loretta Pacheco Other [facility] Other 09-30-2022 18:50-0400 Body mass index (BMI) [Ratio] 25.18 kg/m2 Loretta Pacheco Other [facility] Other 09-30-2022 18:50-0400 Body temperature 99.7 [degF] Loretta Pacheco Other [facility] Other 09-30-2022 18:50-0400 Body weight 70.76 kg Loretta Pacheco Other [facility] Other 09-30-2022 18:50-0400 Respiratory rate 18 /min Loretta Pacheco Other [facility] Other 09-30-2022 18:50-0400 SaO2% (BldA) [Mass fraction] 97 % Loretta Pacheco Other [facility] [employer] Other Encounters Encounter Date Encounter Type Care Provider Facility Start: 11-16-2022 End: 11-17-2022 ambulatory Segun Fraga Facility:[facility] Start: 09-30-2022 End: 09-30-2022 ambulatory Loretta Pacheco Other [facility] [employer] Other Start: 09-30-2022 Office outpatient vi sit 15 minutes Loretta Pacheco [facility] Start: 01-06-[address] BARTLETT LISTED REQUEST Facility: Start: 11-11-2021 End: 11-12-[address] CARTER [facility] [employer] Other Start: 11-11-2021 Postop follow up vis it related to original px Luanne Khan [facility] Start: 10-08-2021 Encounter for preprocedural laboratory examination DR ZAIRE DAWSON [facility] Start: 10-08-2021 End: 10-08-2021 ambulatory FRANKLIN PAIZ Facility:[facility] Start: 10-06-2021 End: 10-07-2021 ambulatory NETO DIAZ Facility:[facility] Start: 10-06-2021 End: 10-07-2021 Encounter for preprocedural laboratory examination NETO DIAZ Facility:[facility] Start: 10-02-2021 End: 10-02-2021 ambulatory Luanne Khan Other [facility] Other Start: 10-02-2021 Telephone encounter Luanne Khan [facility] Start: 10-01-2021 End: 10-01-2021 Patient encounter procedure MD Luanne Khan Work Phone: [facility] Start: 09-30-2021 End: 09-30-[address] BENNY PEREZ Facility:[facility] Start: 06-09-2021 End: 06-09-[address] LINDSAY ROGERS Facility:[facility] Start: 05-09-2021 End: 05-09-[address] NONE LISTED REQUEST Facility:[facility] Start: 04-20-[address] DOCTOR SARAVIA Facility :[facility] Start: 07-22-2016 Patient encounter procedure KIEL BHATIA [facility] Payers Date Payer Category Payer Medicaid [id number] 2. [id number] 2016 Unknown [id number] 2016 Unknown [id number] 1982 Unknown [id number] 2.16.84 [id number] 1982 Unknown [id number] 2.16.84 [id number] 1982 Unknown [id number] 2.16.84 [id number] 1982 Unknown [id number] 2.16.84 [id number] 1982 Unknown [id number] 2.16.84 [id number] 1982 Unknown [id number] 2.16.84 [id number] 1982 Unknown [id number] 2.16.84 [id number] 1982 Unknown [id number] 2.16.84 [id number] 1982 Unknown [id number] 2.16.8 [id number] 1957 Self-pay 1957 Unknown [id number] [facility] [id number] Unknown [id number] 2.16.8 [id number] Unknown Self Pay [id number] Social History Date Type Detail Facility Tobacco smoking status DCIS Unknown if ever smoked [facility] Work Phone: Start: 1980 Sex Assigned At Female [facility] Sex Assigned At Sex Assigned At Bir th [employer] Other Evaluation note 09-30-2022 Note Date & Type Note Facility 09-30-2022 Evaluation note Encounter Date Diagnosis Assessment Notes Sep, Contact dermatitis, unspecified contact dermatitis type, unspecified trigger (ICD-10 - L25.9) Drink plenty fluids, get plenty of rest. Take the prednisone as prescribed until gone starting tomorrow morning. Take Benadryl 25 to 50 mg at night for itching. Bedding every day for the next 4 to 5 days. Wash the clothing that you have been wearing in hot water and dry in a hot dryer. Follow-up with your family physician if no improvement in 2 to 3 days Sep, Other [facility] material was printed [employer] Other Clinical Note 11-11-2021 Note Date & Type Note Facility 11-11-2021 Note PROCEDURE: XR FOREAR M RT 2V COMPARISON: 09/29/2021 HISTORY: Nondisplaced transverse fracture of shaft of right ulna, initial encounter for closed fracture FINDINGS: BONES:Interval open reduction and internal fixation of a mid ulnar fracture utilizing a plate and multiple screws. The fracture plane is minimally visualized consistent with bony healing. No new fracture or dislocation. No mechanical failure SOFT TISSUES:Negative. No visible soft tissue swelling. EFFUSION:None visible. OTHER: Negative. IMPRESSION: Open reduction and internal fixation of a healing ulnar fracture Electronically authenticated by: CARTER BERRY Date: 2021-11-11 17:49 [facility] Evaluation note 11-11-2021 Note Date & Type Note Facility 11-11-2021 Evaluation note Encounter Date Diagnosis Assessment Notes Nov, Other closed fracture of shaft of right ulna with routine healing, subsequent encounter (ICD-10 - S52.291D) Patient instructed on use of occasional heat to area and motion exercise. Patient instructed on gentle motion and slowly progress strength exercise. Nov, Other specified postprocedural states (ICD-10 - Z98.890) [facility] Other Evaluation note 10-02-2021 Note Date & Type Note Facility 10-02-2021 Evaluation note Encounter Date Diagnosis Assessment Notes Sep, Other specified postprocedural states (ICD-10 - Z98.890) [facility] Other Evaluation note Note Date & Type Note Facility Evaluation note No assessment information availa [facility] Work Phone: History general Narrative - Reported Note Date & Type Note Facility History general Narrative - Reported Type Surgical History ankle surgery 2020 Surgical History left knee surgery Surgical History right foot and left foot Surgical History hernia Surgical History 2x ablasions Surgical History tubial [facility] [employer] Other History general Narrative - Reported Note Date & Type Note Facility History general Narrative - Reported Type Surgical History ankle surgery 2020 Surgical History left knee surgery Surgical History right foot and left foot Surgical History hernia Surgical History 2x ablasions Surgical History tubial Surgical History ORIF right ulna shaft 10/02/21 [facility] [employer] Other Summary Purpose Family History No Family History Records FoundNo Family History Records FoundNo Family History Records FoundNo Family History Records Found Advance Directives No Advanced Directives Records Found Advance Directive Response Recorded Date/ Time Advance Directives No October 01, 022 12:43pm Chief Complaint and Reason for Visit Chief Complaint Fracture Additional Source Comments INFORMATION SOURCE (unrecogn ized section and content) DATE CREATED AUTHOR 05/16/2018 [facility] DATE CREATED AUTHOR AUTHOR'S ORGANIZ ATION 10/30/2021 [facility] DATE CREATED AUTHOR AUTHOR'S ORGANIZ ATION 01/07/2022 [facility] DATE CREATED AUTHOR AUTHOR'S ORGANIZ ATION 11/17/2022 [facility] Care Teams (unrecognized sec tion and content) Team Status: Inactive Member Role Status Dates Luanne Khan MD Attending Provider Active AILYN Pradhan Primary Care Provider Active Team Status: Active Member Role Status Dates AILYN Pradhan Primary Care Provider Active Goals (unrecognized section and content) Goals may be documented in a n alternate sectionNo InformationNo InformationNo Information REASON FOR VISIT (unrecogniz ed section and content) post op annieRecbharat Francisco FOR WORKING IN [place] FOR RECORDS PERTAINING TO PATIENTS WHO ARE OR HAVE BEEN ENROLLED IN A CHEMICAL DEPENDENCY/SUBSTANCEABUSE PROGRAM, SOME INFORMATION MAY BE OMITTED. This clinical summary was aggregated from multiple sources. Caution should be exercised in using it in the provision of clinical care. This summary normalizes information from multiple sources, and as a consequence, information in this document may materially change the coding, format and clinical context of patient data. In addition, data may be omitted in some cases. CLINICAL DECISIONS SHOULD BE BASED ON THE PRIMARY CLINICAL RECORDS. [facility] provides no warranty or guarantee of the accuracy or completeness of information in this document.
== END 2023-06-28 14:02 | disposition home or self-care (01) ==
LOC: RAD 14:01
PROVIDERS: Visit Provider Nurse Practitioner
DX: M25.521 Pain in right elbow (principal)
CPT/HCPCS: 73080